=== PATIENT | female | born 1990 | race African-American/Black ===

== ENCOUNTER 2017-03-02 09:29 | Outpatient (CLI) | payer MEDICAID | END 2017-03-02 11:42 | disposition home or self-care (01) | LOC: LDOP 09:29 | PROVIDERS: ATTEND Obstetrics & Gynecology | DX: O26.899 Other specified pregnancy related conditions, unspecified trimester (principal); R10.9 Unspecified abdominal pain; Z3A.00 Weeks of gestation of pregnancy not specified | CPT/HCPCS: 59025; 99201; G0463 ==